=== PATIENT | male | born 1985 | race Caucasian/White ===

== ENCOUNTER 2018-08-23 06:01 | Emergency (ER) | payer OTHER ==
[2018-08-23] MEDS ORDERED: SODIUM CHLORIDE 0.9% 1,000 ML IV STA (06:28)
[2018-08-23] MEDS ORDERED: ACETAMINOPHEN TAB 325 MG TAB PO STA (06:28)
--- NOTE | 2018-08-23 06:28 | ED ---
Chest Pain HPI - General Chief Complaint: Chest Pain Stated Complaint: Chest Pain Time Seen by Provider: 08/23/18 06:20 Source: patient, family Mode of arrival: ambulatory Limitations: no limitations - History of Present Illness Initial Comments: Patient's 33-year-old man who presents with complaint of pain to the upper left chest. He states that it began approximately 2 days ago. He states that it is constant, sharp, aching pain. Patient noticed that it is worse if he takes a deep breath or coughs and also if he moves. He states he has also been having a bit of a cough occasionally with thick sputum and over the past 1-2 days has been having some fevers as well. He has been breaking into a sweat associated with the fevers. He denies anginal symptoms, no nausea or vomiting, dyspnea, palpitations, lightheadedness or syncope. MD Complaint: chest pain Onset/Timin -: days(s) Onset: during rest Pain Location: left chest Pain Radiation: none Severity: severe Quality: sharp Consistency: constant Improves With: nothing Worsens With: inspiration, movement Other Symptoms: cough, fever Treatments Prior to Arrival: none - Related Data Previous Rx's Medication Instructions Recorded Azithromycin [Zithromax Z-pack] 250 mg PO DIRECTED #6 tab 08/23/18 Allergies Allergy/AdvReac Type Severity Reaction Status Date / Time No Known Allergies Allergy Verified 08/23/18 07:14 Review of Systems ROS Statement: Those systems with pertinent positive or pertinent negative responses have been documented in the HPI. ROS Other: All systems not noted in ROS Statement are negative. Constitutional: Reports: fever, chills Respiratory: Reports: as per HPI, cough. Denies: dyspnea, wheezes, hemoptysis Cardiovascular: Reports: as per HPI, chest pain Gastrointestinal: Denies: abdominal pain, nausea, vomiting Genitourinary: Denies: dysuria, hematuria Musculoskeletal: Denies: back pain Skin: Denies: rash Neurological: Denies: headache, weakness EKG Findings - EKG Results: EKG: interpreted by MILTON, sinus rhythm, normal axis, normal QRS, normal ST/T, no acute changes EKG shows: tachycardia (Rate approximately 102 BPM) Past Medical History Past Medical History: No Reported History History of Any Multi-Drug Resistant Organisms: None Reported Past Surgical History: No Surgical Hx Reported Past Psychological History: Depression Smoking Status: Current every day smoker Past Alcohol Use History: None Reported Past Drug Use History: None Reported General Exam Limitations: no limitations General appearance: alert, in no apparent distress Head exam: Present: atraumatic, normocephalic Eye exam: Present: normal appearance. Absent: scleral icterus, conjunctival injection ENT exam: Present: normal oropharynx Neck exam: Present: normal inspection, full ROM Respiratory exam: Present: rales (Left), rhonchi. Absent: respiratory distress, stridor, chest wall tenderness, accessory muscle use, decreased breath sounds, prolonged expiratory Cardiovascular Exam: Present: normal rhythm, tachycardia, normal heart sounds. Absent: systolic murmur, diastolic murmur, rubs, gallop GI/Abdominal exam: Present: soft. Absent: distended, tenderness, guarding, rebound, rigid, mass Extremities exam: Present: normal inspection, normal capillary refill. Absent: pedal edema, calf tenderness Back exam: Present: normal inspection. Absent: CVA tenderness (R), CVA tenderness (L) Neurological exam: Present: alert Skin exam: Present: warm, intact, normal color, diaphoretic. Absent: rash Course Vital Signs 08/23/18 08/23/18 08/23/18 06:04 07:02 07:06 Temperature 100.6 F H 100.4 F H Pulse Rate 120 H 88 Respiratory 19 18 18 Rate Blood Pressure 137/92 146/87 O2 Sat by Pulse 97 Oximetry Disposition Clinical Impression: Pneumonia Disposition: HOME SELF-CARE Condition: Good Instructions (If sedation given, give patient instructions): Pneumonia (ED) Prescriptions: Azithromycin [Zithromax Z-pack] 250 mg PO DIRECTED #6 tab Is patient prescribed a controlled substance at d/c from ED?: No Referrals: None,Stated [Primary Care Provider] - 1-2 days Romeo Salcedo MD [REFERRING] - 1-2 days
[2018-08-23 06:42] LABS: Basophils % (A) 0 %; Eosinophils # (A) 0.1 k/uL (0-0.7); Eosinophils % (A) 1 %; HCT 44.6 % (39.0-53.0); HGB 15.4 gm/dL (13.0-17.5); Lymphocytes # (A) 2.5 k/uL (1.0-4.8); Lymphocytes % (A) 22 %; MCH 28.9 pg (25.0-35.0); MCHC 34.6 g/dL (31.0-37.0); MCV 83.7 fL (80.0-100.0); Monocytes # (A) 0.8 k/uL (0-1.0); Monocytes % (A) 7 %; Neutrophils # (A) 7.7 k/uL (1.3-7.7); Neutrophils % (A) 68 %; Platelet Count 254 k/uL (150-450); RBC 5.32 m/uL (4.30-5.90); RDW 13.9 % (11.5-15.5); WBC 11.4 k/uL (3.8-10.6)
[2018-08-23 06:54] LABS: ALT 26 U/L (21-72); AST 22 U/L (17-59); African American GFR (CKD) >90 (>60 ml/min/1.73 sqM); Albumin 4.3 g/dL (3.5-5.0); Alkaline Phosphatase 108 U/L (38-126); Anion Gap 16 mmol/L; Blood Urea Nitrogen 9 mg/dL (9-20); Calcium 9.4 mg/dL (8.4-10.2); Carbon Dioxide 19 mmol/L (22-30); Chloride 104 mmol/L (98-107); Glucose 109 mg/dL (74-99); Magnesium 1.7 mg/dL (1.6-2.3); Potassium 3.9 mmol/L (3.5-5.1); Sodium 139 mmol/L (137-145); Total Bilirubin 0.9 mg/dL (0.2-1.3); Total Protein 7.6 g/dL (6.3-8.2)
[2018-08-23 06:55] LABS: D-Dimer 0.33 mg/L FEU (<0.60); INR 0.9 (<1.2); Partial Thromboplastin Time 29.4 sec (22.0-30.0); Prothrombin Time 10.2 sec (9.0-12.0)
--- NOTE | 2018-08-23 06:56 | XR ---
EXAM: XR Chest, 2 Views CLINICAL HISTORY: Chest Pain TECHNIQUE: Frontal and lateral views of the chest. COMPARISON: No relevant prior studies available. FINDINGS: Limitations: Poor inspiratory effort limits evaluation. Lungs: Probable bibasilar atelectasis given the poor inspiratory effort. Infiltrates cannot be definitively excluded. Pleural space: Unremarkable. No pneumothorax. Heart: Unremarkable. No cardiomegaly. Mediastinum: Unremarkable. Bones/joints: Unremarkable. IMPRESSION: Probable bibasilar atelectasis given the poor inspiratory effort. Infiltrates cannot be definitively excluded.
[2018-08-23 07:05] VITALS: RESP 18
[2018-08-23] MEDS ORDERED: AZITHROMYCIN 500 MG TAB PO STA (07:15)
[2018-08-23] MEDS ORDERED: cefTRIAXone IN SWFI 1,000 MG/10 ML SYRINGE IVP STA ×2 (07:21→07:22)
[2018-08-23 08:11] VITALS: BP 132/82; PULSE 89; TEMP 98.4
== END 2018-08-23 08:25 | disposition home or self-care (01) ==
LOC: EC 06:01
DX: J18.9 Pneumonia, unspecified organism (principal); F17.200 Nicotine dependence, unspecified, uncomplicated; Z53.8 Procedure and treatment not carried out for other reasons
CPT/HCPCS: 36415; 71046; 80053; 83735; 84484; 85025; 85379; 85610; 85730; 87040; 93005; 96361; 96365; 99285

== ENCOUNTER 2018-08-24 00:51 | Inpatient (IN) | payer OTHER ==
[2018-08-24] MEDS ORDERED: VANCOMYCIN IV PER PHARMACY 1 EACH MISC MISCELLANE PRN (01:03)
[2018-08-24] MEDS ORDERED: VANCOMYCIN 1,500 MG in SODIUM CHLORIDE 0.9% 250 ML IVPB STA (01:11)
[2018-08-24] MEDS: SODIUM CHLORIDE 0.9% 500 ML 500 ML IV SCH ×3 (01:38→03:33)
[2018-08-24 01:39] LABS: Basophils # (A) 0.1 k/uL (0-0.2); Basophils % (A) 0 %; Eosinophils # (A) 0.2 k/uL (0-0.7); Eosinophils % (A) 2 %; HCT 43.9 % (39.0-53.0); HGB 14.7 gm/dL (13.0-17.5); Lymphocytes # (A) 2.6 k/uL (1.0-4.8); Lymphocytes % (A) 21 %; MCH 28.3 pg (25.0-35.0); MCHC 33.4 g/dL (31.0-37.0); MCV 84.7 fL (80.0-100.0); Mean Platelet Volume 7.1; Monocytes # (A) 0.6 k/uL (0-1.0); Monocytes % (A) 5 %; Neutrophils # (A) 8.4 k/uL (1.3-7.7); Neutrophils % (A) 69 %; Platelet Count 254 k/uL (150-450); RBC 5.19 m/uL (4.30-5.90); RDW 14.8 % (11.5-15.5); WBC 12.1 k/uL (3.8-10.6)
[2018-08-24] MEDS: PIPERACILLIN-TAZOBACTAM 3.375 GM in SODIUM CHLORIDE 0.9% 100 ML IVPB SCH ×2 (01:41→09:45)
[2018-08-24 01:49] LABS: ALT 28 U/L (21-72); AST 38 U/L (17-59); African American GFR (CKD) >90 (>60 ml/min/1.73 sqM); Albumin 4.3 g/dL (3.5-5.0); Alkaline Phosphatase 95 U/L (38-126); Anion Gap 9 mmol/L; Blood Urea Nitrogen 12 mg/dL (9-20); Calcium 9.3 mg/dL (8.4-10.2); Carbon Dioxide 29 mmol/L (22-30); Chloride 105 mmol/L (98-107); Glucose 108 mg/dL (74-99); Sodium 143 mmol/L (137-145); Total Bilirubin 0.5 mg/dL (0.2-1.3); Total Protein 7.5 g/dL (6.3-8.2)
[2018-08-24 01:51] LABS: INR 0.9 (<1.2); Partial Thromboplastin Time 28.3 sec (22.0-30.0); Prothrombin Time 10.1 sec (9.0-12.0)
--- NOTE | 2018-08-24 02:10 | XR ---
EXAM: XR Chest, 2 Views CLINICAL HISTORY: ITS.REASON XR Reason: Fever TECHNIQUE: Frontal and lateral views of the chest. COMPARISON: Chest radiograph 08/23/2018 FINDINGS: Lungs: No focal pulmonary infiltrates or consolidations. Pleural space: No evidence of pleural effusion or pneumothorax. Heart: Heart size is within normal limits. Mediastinum: Mediastinal structures are unremarkable. Bones/joints: Imaged bony thorax is unremarkable. IMPRESSION: No evidence of acute cardiopulmonary disease.
[2018-08-24] MEDS ORDERED: NALOXONE 0.4 MG/ML 1 ML VIAL IV PRN (03:44)
--- NOTE | 2018-08-24 03:44 | ED ---
General Adult HPI - General Chief complaint: Recheck/Abnormal Lab/Rx Stated complaint: Abn labs Time Seen by Provider: 08/24/18 01:03 Source: patient, RN notes reviewed, old records reviewed Mode of arrival: ambulatory Limitations: no limitations - History of Present Illness Initial comments: 33-year-old male patient past history of IV drug use presents to ED after being called back due to abnormal blood tests. Patient was seen in this emergency department yesterday for chest pain. At the time it was determined that the chest pain is likely caused by a pneumonia. Patient had blood cultures drawn at that visit. Patient's blood cultures did grow gram-positive cocci in clusters. Patient's symptoms he has been expressing for the last 3 days included some mild left parasternal chest pain, nonproductive cough, subjective fevers and chills. Patient reports that he has some very mild left parasternal discomfort waxing and waning throughout the day today. Patient reports his symptoms are much improved from yesterday. Patient denies any shortness of breath today. Patient denies any current chest pain. Denies any nausea vomiting diarrhea or abdominal pain. Systemic: Pt denies fatigue, fever/chills, rash. Pt denies weakness, night sweats, weight loss. Neuro: Pt denies headache, visual disturbances, syncope or pre-syncope. HEENT: Pt denies ocular discharge or irritation, otalgia, rhinorrhea, pharyngitis or notable lymphadenopathy. Cardiopulmonary: Pt denies chest pain, SOB, heart palpitations, dyspnea on exertion. Abdominal/GI: Pt denies abdominal pain, n/v/d. : Pt denies dysuria, burning w/ urination, frequency/urgency. Denies new onset urinary or bowel incontinence. MSK: Pt denies myalgia, loss of strength or function in extremities. Neuro: Pt denies new onset weakness, paresthesias. - Related Data Previous Rx's Medication Instructions Recorded Azithromycin [Zithromax Z-pack] 250 mg PO DIRECTED #6 tab 08/23/18 Allergies Allergy/AdvReac Type Severity Reaction Status Date / Time No Known Allergies Allergy Verified 08/23/18 07:14 Review of Systems ROS Statement: Those systems with pertinent positive or pertinent negative responses have been documented in the HPI. ROS Other: All systems not noted in ROS Statement are negative. Past Medical History Past Medical History: No Reported History History of Any Multi-Drug Resistant Organisms: None Reported Past Surgical History: No Surgical Hx Reported Past Psychological History: Depression Smoking Status: Current every day smoker Past Alcohol Use History: None Reported Past Drug Use History: None Reported General Exam - General Exam Comments Initial Comments: Constitutional: NAD, AOX3, Pt has pleasant affect. HEENT: NC/AT, trachea midline, neck supple, no lymphadenopathy. Posterior pharynx non erythematous, without exudates. External ears appear normal, without discharge. Mucous membranes moist. Eyes PERRLA, EOM intact. There is no scleral icterus. No pallor noted. Cardiopulmonary: RRR, no murmurs, rubs or gallops, no JVD noted. Lungs CTAB in anterior and posterior shah. No peripheral edema. Abdominal exam: Abdomen soft and non-distended. Abdomen non-tender to palpation in all 4 quadrants. Bowel sounds active in LLQ. No hepatosplenomegaly. No ecchymosis Neuro: CN II-XII grossly intact. No nuchal rigidity. No raccon eyes, no rubin sign, no hemotympanum. No cervical spinal tenderness. MSK: No posterior calf tenderness bilaterally, homans sign negative bilaterally. Posterior tibialis and radial pulse +2 bilaterally. Sensation intact in upper and lower extremities. Full active ROM in upper and lower extremities, 5/5 stregnth. No splinter hemorrhage, Janeway lesions, Osler nodes or rash noted Limitations: no limitations Course Vital Signs 08/24/18 08/24/18 00:59 03:38 Temperature 98.2 F Pulse Rate 85 91 Respiratory 16 14 Rate Blood Pressure 144/92 139/84 O2 Sat by Pulse 98 98 Oximetry Medical Decision Making - Medical Decision Making 33-year-old male patient past history of IV drug use presents to ED after being called back due to abnormal blood tests. Patient was seen in this emergency department yesterday for chest pain. At the time it was determined that the chest pain is likely caused by a pneumonia. Patient had blood cultures drawn at that visit. Patient's blood cultures did grow gram-positive cocci in clusters. Patient's symptoms he has been expressing for the last 3 days included some mild left parasternal chest pain, nonproductive cough, subjective fevers and chills. Patient reports that he has some very mild left parasternal discomfort waxing and waning throughout the day today. Patient reports his symptoms are much improved from yesterday. Patient denies any shortness of breath today. Patient denies any current chest pain. Denies any nausea vomiting diarrhea or abdominal pain. Pt VSS, afebrile. Physical exam did not display acute pathology. Laboratory investigations revealed mild leukocytosis of 12.1, otherwise nonspecific. Chest x-ray did not display acute process. EKG not concerning for acute ischemia. Patient began on vancomycin, Zosyn. Patient be admitted to hospital with infectious disease consult. Case discussed with Dr. Ruffin. - Lab Data Result diagrams: 08/24/18 01:30 08/24/18 01:30 Lab Results 08/24/18 08/24/18 08/24/18 Range/Units 01:30 01:30 01:30 WBC 12.1 H (3.8-10.6) k/uL RBC 5.19 (4.30-5.90) m/uL Hgb 14.7 (13.0-17.5) gm/dL Hct 43.9 (39.0-53.0) % MCV 84.7 (80.0-100.0) fL MCH 28.3 (25.0-35.0) pg MCHC 33.4 (31.0-37.0) g/dL RDW 14.8 (11.5-15.5) % Plt Count 254 (150-450) k/uL Neutrophils % 69 % Lymphocytes % 21 % Monocytes % 5 % Eosinophils % 2 % Basophils % 0 % Neutrophils # 8.4 H (1.3-7.7) k/uL Lymphocytes # 2.6 (1.0-4.8) k/uL Monocytes # 0.6 (0-1.0) k/uL Eosinophils # 0.2 (0-0.7) k/uL Basophils # 0.1 (0-0.2) k/uL PT 10.1 (9.0-12.0) sec INR 0.9 (<1.2) APTT 28.3 (22.0-30.0) sec Sodium (137-145) mmol/L Potassium (3.5-5.1) mmol/L Chloride (98-107) mmol/L Carbon Dioxide (22-30) mmol/L Anion Gap mmol/L BUN (9-20) mg/dL Creatinine (0.66-1.25) mg/dL Est GFR (CKD-EPI)AfAm (>60 ml/min/1.73 sqM) Est GFR (CKD-EPI)NonAf (>60 ml/min/1.73 sqM) Glucose (74-99) mg/dL Plasma Lactic Acid Bello 1.3 (0.7-2.0) mmol/L Calcium (8.4-10.2) mg/dL Total Bilirubin (0.2-1.3) mg/dL AST (17-59) U/L ALT (21-72) U/L Alkaline Phosphatase (38-126) U/L Troponin I (0.000-0.034) ng/mL Total Protein (6.3-8.2) g/dL Albumin (3.5-5.0) g/dL Urine Color Urine Appearance (Clear) Urine pH (5.0-8.0) Ur Specific [place] (1.001-1.035) Urine Protein (Negative) Urine Glucose (UA) (Negative) Urine Ketones (Negative) Urine Blood (Negative) Urine Nitrite (Negative) Urine Bilirubin (Negative) Urine Urobilinogen (<2.0) mg/dL Ur Leukocyte Esterase (Negative) 08/24/18 08/24/18 08/24/18 Range/Units 01:30 01:30 03:37 WBC (3.8-10.6) k/uL RBC (4.30-5.90) m/uL Hgb (13.0-17.5) gm/dL Hct (39.0-53.0) % MCV (80.0-100.0) fL MCH (25.0-35.0) pg MCHC (31.0-37.0) g/dL RDW (11.5-15.5) % Plt Count (150-450) k/uL Neutrophils % % Lymphocytes % % Monocytes % % Eosinophils % % Basophils % % Neutrophils # (1.3-7.7) k/uL Lymphocytes # (1.0-4.8) k/uL Monocytes # (0-1.0) k/uL Eosinophils # (0-0.7) k/uL Basophils # (0-0.2) k/uL PT (9.0-12.0) sec INR (<1.2) APTT (22.0-30.0) sec Sodium 143 (137-145) mmol/L Potassium 4.0 (3.5-5.1) mmol/L Chloride 105 (98-107) mmol/L Carbon Dioxide 29 (22-30) mmol/L Anion Gap 9 mmol/L BUN 12 (9-20) mg/dL Creatinine 0.94 (0.66-1.25) mg/dL Est GFR (CKD-EPI)AfAm >90 (>60 ml/min/1.73 sqM) Est GFR (CKD-EPI)NonAf >90 (>60 ml/min/1.73 sqM) Glucose 108 H (74-99) mg/dL Plasma Lactic Acid Bello (0.7-2.0) mmol/L Calcium 9.3 (8.4-10.2) mg/dL Total Bilirubin 0.5 (0.2-1.3) mg/dL AST 38 (17-59) U/L ALT 28 (21-72) U/L Alkaline Phosphatase 95 (38-126) U/L Troponin I <0.012 (0.000-0.034) ng/mL Total Protein 7.5 (6.3-8.2) g/dL Albumin 4.3 (3.5-5.0) g/dL Urine Color Yellow Urine Appearance Clear (Clear) Urine pH 6.5 (5.0-8.0) Ur Specific [place] 1.015 (1.001-1.035) Urine Protein Negative (Negative) Urine Glucose (UA) Negative (Negative) Urine Ketones Negative (Negative) Urine Blood Negative (Negative) Urine Nitrite Negative (Negative) Urine Bilirubin Negative (Negative) Urine Urobilinogen <2.0 (<2.0) mg/dL Ur Leukocyte Esterase Negative (Negative) - EKG Data -: EKG Interpreted by Me (and Dr. Ruffin) EKG Comments: Ventricular rate 97, painful 140, QRS 82, QT/QTC 322/48. Normal sinus rhythm, normal EKG, no concern for acute ischemia. Disposition Clinical Impression: Positive blood culture Disposition: ADMITTED IP TO THIS HOSP Condition: Serious Is patient prescribed a controlled substance at d/c from ED?: No
[2018-08-24 03:46] LABS: Appearance,Urine Clear (Clear); Bilirubin,Urine Negative (Negative); Blood,Urine Negative (Negative); Color,Urine Yellow; Glucose,Urine (UA) Negative (Negative); Ketones,Urine Negative (Negative); Leukocyte Esterase,Urine Negative (Negative); Nitrite,Urine Negative (Negative); PH, Urine 6.5 (5.0-8.0); Protein,Urine Negative (Negative); Specific Gravity,Urine 1.015 (1.001-1.035); Urobilinogen,Urine <2.0 mg/dL (<2.0)
[2018-08-24] MEDS: SODIUM CHLORIDE 0.9% 1,000 ML IV SCH ×2 (04:35→16:12)
[2018-08-24] MEDS ORDERED: KETOROLAC 30 MG/ML 1 ML VIAL IVP STA (05:08)
[2018-08-24] MEDS: VANCOMYCIN 1,500 MG in SODIUM CHLORIDE 0.9% 250 ML IVPB SCH ×2 (12:18→19:48)
--- NOTE | 2018-08-24 12:42 | P.CONS ---
History of Present Illness - Reason for Consult Consult date: 08/24/18 Positive blood culture, IV drug use, pneumonia - History of Present Illness This is a 33-year-old male gives history of treatment for pneumonia in the emergency center on August 23. At that time blood culture was obtained which has subsequently come back with gram-positive cocci and patient was contacted and instructed to come back in 2 Emergency Ctr. Repeat blood cultures have been obtained. Initial blood culture is showing gram-positive cocci in clusters. Echocardiogram has been ordered. Patient is currently on Zosyn and vancomycin. Patient was previously discharged home on Z-Von from the emergency center for pneumonia. Patient denies having any fever or chills. His cough is improved and shortness of breath is improved. Patient has been afebrile, white count is 12.1, creatinine 0.94, urinalysis negative. Patient does give history of IV use of oxycodone about 2 weeks ago but had previously quit 1 year ago. Noted the patient does not have any insurance coverage for IV antibiotics. Review of Systems All systems: negative Constitutional: Denies chills, Denies fatigue, Denies fever, Denies poor appetite, Denies weakness Eyes: denies blurred vision, denies pain Ears, nose, mouth and throat: Denies dysphagia, Denies headache, Denies nasal congestion, Denies nasal discharge, Denies sore throat Cardiovascular: Denies chest pain, Denies decreased exercise tolerance, Denies dyspnea on exertion, Denies edema, Denies shortness of breath Respiratory: Reports cough, Denies dyspnea, Denies excessive sputum, Denies hemoptysis, Denies home oxygen, Denies wheezing Gastrointestinal: Denies abdominal pain, Denies diarrhea, Denies nausea, Denies vomiting Genitourinary: Denies dysuria, Denies urinary frequency, Denies urinary hesitancy Musculoskeletal: Denies myalgias Integumentary: Denies pruritus, Denies rash, Denies wounds Neurological: Denies aphasia, Denies change in mentation, Denies change in sp eech, Denies numbness, Denies seizures, Denies weakness Psychiatric: Denies anxiety, Denies depression Endocrine: Denies fatigue, Denies weight change Past Medical History Past Medical History: No Reported History History of Any Multi-Drug Resistant Organisms: None Reported Past Surgical History: No Surgical Hx Reported Additional Past Anesthesia/Blood Transfusion Reaction / Comm: never had either. Past Psychological History: Depression Smoking Status: Current every day smoker Past Alcohol Use History: None Reported Additional Past Alcohol Use History / Comment(s): Patient is a smoker one pack per day for 12 years. He denies any alcohol use. Patient has used OxyContin IV and oral most recently 2 weeks ago. Past Drug Use History: None Reported, IV Drug Use, Opiates Additional Drug Use History / Comment(s): last used 2 weeks ago. Medications and Allergies Home Medications Medication Instructions Recorded Confirmed Type Linezolid 600 mg PO BID #42 tablet 08/24/18 Rx Allergies Allergy/AdvReac Type Severity Reaction Status Date / Time No Known Allergies Allergy Verified 08/24/18 07:16 Physical Exam Vitals: Vital Signs Temp Pulse Pulse Resp BP BP Pulse Ox 08/24/18 05:37 99.1 F 91 18 126/77 98 08/24/18 03:38 91 14 139/84 98 08/24/18 00:59 98.2 F 85 16 144/92 98 Intake and Output 08/23/18 08/24/18 08/24/18 22:59 06:59 14:59 Intake Total 1950 Balance 1950 Intake: Amount of Fluid Infused ( 1850 ml) Intake, IV Titration 100 Amount Sodium Chloride 0.9% 1, 100 000 ml @ 100 mls/hr IV . Q10H [facility] Rx#:[id number] Other: Weight 79.832 kg Gen: This is a 33-year-old male. He is resting in bed appears to be comfortable and in no acute distress. HEENT: Head is atraumatic, normocephalic. Pupils equal, round. Sclerae is anicteric. Oral mucous members are moist. NECK: Supple. No JVD. No lymphadenopathy. No thyromegaly. LUNGS: Clear to auscultation. No wheezes or rhonchi. No intercostal retractions. HEART: Regular rate and rhythm. No murmur. ABDOMEN: Soft. Bowel sounds are present. No masses. No tenderness. EXTREMITIES: No pedal edema. No calf tenderness. NEUROLOGICAL: Patient is awake, alert and oriented x3. Cranial nerves 2 through 12 are grossly intact. Results Results: Laboratory Results WBC 12.1 k/uL (3.8-10.6) H 08/24/18 01:30 RBC 5.19 m/uL (4.30-5.90) 08/24/18 01:30 Hgb 14.7 gm/dL (13.0-17.5) 08/24/18 01:30 Hct 43.9 % (39.0-53.0) 08/24/18 01:30 MCV 84.7 fL (80.0-100.0) 08/24/18 01:30 MCH 28.3 pg (25.0-35.0) 08/24/18 01:30 MCHC 33.4 g/dL (31.0-37.0) 08/24/18 01:30 RDW 14.8 % (11.5-15.5) 08/24/18 01:30 Plt Count 254 k/uL (150-450) 08/24/18 01:30 Neutrophils % 69 % 08/24/18 01:30 Lymphocytes % 21 % 08/24/18 01:30 Monocytes % 5 % 08/24/18 01:30 Eosinophils % 2 % 08/24/18 01:30 Basophils % 0 % 08/24/18 01:30 Neutrophils # 8.4 k/uL (1.3-7.7) H 08/24/18 01:30 Lymphocytes # 2.6 k/uL (1.0-4.8) 08/24/18 01:30 Monocytes # 0.6 k/uL (0-1.0) 08/24/18 01:30 Eosinophils # 0.2 k/uL (0-0.7) 08/24/18 01:30 Basophils # 0.1 k/uL (0-0.2) 08/24/18 01:30 PT 10.1 sec (9.0-12.0) 08/24/18 01:30 INR 0.9 (<1.2) 08/24/18 01:30 APTT 28.3 sec (22.0-30.0) 08/24/18 01:30 Sodium 143 mmol/L (137-145) 08/24/18 01:30 Potassium 4.0 mmol/L (3.5-5.1) 08/24/18 01:30 Chloride 105 mmol/L (98-107) 08/24/18 01:30 Carbon Dioxide 29 mmol/L (22-30) 08/24/18 01:30 Anion Gap 9 mmol/L 08/24/18 01:30 BUN 12 mg/dL (9-20) 08/24/18 01:30 Creatinine 0.94 mg/dL (0.66-1.25) 08/24/18 01:30 Est GFR (CKD-EPI)AfAm >90 (>60 ml/min/1.73 sqM) 08/24/18 01:30 Est GFR (CKD-EPI)NonAf >90 (>60 ml/min/1.73 sqM) 08/24/18 01:30 Glucose 108 mg/dL (74-99) H 08/24/18 01:30 Plasma Lactic Acid Bello 1.3 mmol/L (0.7-2.0) 08/24/18 01:30 Calcium 9.3 mg/dL (8.4-10.2) 08/24/18 01:30 Total Bilirubin 0.5 mg/dL (0.2-1.3) 08/24/18 01:30 AST 38 U/L (17-59) 08/24/18 01:30 ALT 28 U/L (21-72) 08/24/18 01:30 Alkaline Phosphatase 95 U/L (38-126) 08/24/18 01:30 Troponin I <0.012 ng/mL (0.000-0.034) 08/24/18 01:30 Total Protein 7.5 g/dL (6.3-8.2) 08/24/18 01:30 Albumin 4.3 g/dL (3.5-5.0) 08/24/18 01:30 Urine Color Yellow 08/24/18 03:37 Urine Appearance Clear (Clear) 08/24/18 03:37 Urine pH 6.5 (5.0-8.0) 08/24/18 03:37 Ur Specific [place] 1.015 (1.001-1.035) 08/24/18 03:37 Urine Protein Negative (Negative) 08/24/18 03:37 Urine Glucose (UA) Negative (Negative) 08/24/18 03:37 Urine Ketones Negative (Negative) 08/24/18 03:37 Urine Blood Negative (Negative) 08/24/18 03:37 Urine Nitrite Negative (Negative) 08/24/18 03:37 Urine Bilirubin Negative (Negative) 08/24/18 03:37 Urine Urobilinogen <2.0 mg/dL (<2.0) 08/24/18 03:37 Ur Leukocyte Esterase Negative (Negative) 08/24/18 03:37 CBC & Chem 7: 08/25/18 09:43 08/25/18 09:43 Labs: Abnormal Lab Results - Last 24 Hours (Table) 08/24/18 08/24/18 Range/Units 01:30 01:30 WBC 12.1 H (3.8-10.6) k/uL Neutrophils # 8.4 H (1.3-7.7) k/uL Glucose 108 H (74-99) mg/dL Assessment and Plan Assessment: Cardiopulmonary process. Patient had blood culture obtained which came back positive for gram-positive cocci in clusters. Patient was asked return to the hospital and has been admitted. Patient is currently on Zosyn and vancomycin. Repeat blood culture has been obtained. Echocardiogram ordered. Patient does have history of IV drug use within 2 weeks. Continue supportive care. Further limitations patient versus. The above dictated assessment and findings were discussed with Dr. Qureshi. The impression and plan of care have been directed as dictated. Gwendolyn Child nurse practitioner acting as scribe for Dr. Qureshi.
--- NOTE | 2018-08-24 12:51 | ECHOF ---
Referral Reason:R/O endocarditis MEASUREMENTS -------- HEIGHT: 170.2 cm WEIGHT: 79.8 kg BP: 126/77 RVIDd: 3.4 cm (< 3.3) IVSd: 1.1 cm (0.6 - 1.1) LVIDd: 4.9 cm (3.9 - 5.3) LVPWd: 1.2 cm (0.6 - 1.1) IVSs: 1.4 cm LVIDs: 3.1 cm LVPWs: 1.9 cm LAESV Index (A-L): 31.01 ml/m Ao Diam: 3.3 cm (2.0 - 3.7) AV Cusp: 2.1 cm (1.5 - 2.6) LA Diam: 3.3 cm (2.7 - 3.8) EPSS: 0.6 cm MV E Rudy: 1.11 m/s MV DecT: 224 ms MV A Rudy: 1.00 m/s MV E/A Ratio: 1.10 RAP: 5.00 mmHg RVSP: 29.89 mmHg MV EF SLOPE: 166.65 mm/s (70 - 150) MV EXCURSION: 1.64 cm (> 18.000) FINDINGS -------- Sinus rhythm. This was a technically adequate study. The left ventricular size is normal. There is borderline concentric left ventricular hypertrophy. Overall left ventricular systolic function is normal with, an EF between 55 - 60 %. The diastolic filling pattern is normal for the age of the patient. The right ventricle is mildly enlarged. Left atrium is mildly dilated by volume. The right atrial size is normal. Interatrial and interventricular septum intact. The aortic valve is trileaflet and appears structurally normal. There is no evidence of aortic regu rgitation. There is no evidence of aortic stenosis. There is trace mitral regurgitation. Mild tricuspid regurgitation present. There is no evidence of pulmonary hypertension. The right v entricular systolic pressure, as measured by Doppler, is 29.89mmHg. There is no pulmonic regurgitation present. The aortic root size is normal. The inferior vena cava was not well visualized. There is a trivial pericardial effusion present. CONCLUSIONS -------- 1. Sinus rhythm. 2. This was a technically adequate study. 3. The left ventricular size is normal. 4. There is borderline concentric left ventricular hypertrophy. 5. Overall left ventricular systolic function is normal with, an EF between 55 - 60 %. 6. The diastolic filling pattern is normal for the age of the patient. 7. The right ventricle is mildly enlarged. 8. Left atrium is mildly dilated by volume. 9. The right atrial size is normal. 10. Interatrial and interventricular septum intact. 11. The aortic valve is trileaflet and appears structurally normal. 12. There is no evidence of aortic regurgitation. 13. There is no evidence of aortic stenosis. 14. There is trace mitral regurgitation. 15. Mild tricuspid regurgitation present. 16. There is no evidence of pulmonary hypertension. 17. The right ventricular systolic pressure, as measured by Doppler, is 29.89mmHg. 18. There is no pulmonic regurgitation present. 19. The aortic root size is normal. 20. The inferior vena cava was not well visualized. 21. There is a trivial pericardial effusion present. [facility] CORONER: Raaenn Atkinson RDCS
--- NOTE | 2018-08-24 14:19 | P.HPIM ---
History of Present Illness 71-year-old pleasant male came was asked by ER to come back because of his blood cultures being positive for gram-positive cocci. Patient came in with fever of 102 with cough with minimal sputum production chest x-ray did not show any pneumonic process but patient was diagnosed with pneumonia and bronchitis was discharged home on 9 azithromycin. Patient's fevers resolved. Blood repeat blood cultures were obtained. Patient was started on Vanco and Zosyn may not need Zosyn will continue with vancomycin infectious disease is a Dr. 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 Patient is sexually active with one female partner for long time which is his . Echocardiogram was obtained which did not show any valvular abnormalities. Blood cultures are now showing staph aureus. Hepatitis panel and HIV testings are being obtained. Patient is bit tachycardic no shortness of breath no more fever at this time Review of Systems REVIEW OF SYSTEMS: CONSTITUTIONAL: No fever, no malaise, no fatigue. HEENT: No recent visual problems or hearing problems. Denied any sore throat. CARDIOVASCULAR: No chest pain, orthopnea, PND, no palpitations, no syncope. PULMONARY: No shortness of breath, no cough, no hemoptysis. GASTROINTESTINAL: No diarrhea, no nausea, no vomiting, no abdominal pain. NEUROLOGICAL: No headaches, no weakness, no numbness. HEMATOLOGICAL: Denies any bleeding or petechiae. GENITOURINARY: Denies any burning micturition, frequency, or urgency. MUSCULOSKELETAL/RHEUMATOLOGICAL: Denies any joint pain, swelling, or any muscle pain. ENDOCRINE: Denies any polyuria or polydipsia. The rest of the 14-point review of systems is negative. Past Medical History Past Medical History: No Reported History History of Any Multi-Drug Resistant Organisms: None Reported Past Surgical History: No Surgical Hx Reported Additional Past Anesthesia/Blood Transfusion Reaction / Comment(s): never had either. Past Psychological History: Depression Smoking Status: Current every day smoker Past Alcohol Use History: None Reported Additional Past Alcohol Use History / Comment(s): Patient is a smoker one pack per day for 12 years. He denies any alcohol use. Patient has used OxyContin IV and oral most recently 2 weeks ago. Past Drug Use History: None Reported, IV Drug Use, Opiates Additional Drug Use History / Comment(s): last used 2 weeks ago. Medications and Allergies Home Medications Medication Instructions Recorded Confirmed Type Azithromycin [Zithromax Z-pack] See Taper PO DAILY 08/24/18 08/24/18 History Linezolid 600 mg PO BID #42 tablet 08/24/18 Rx Allergies Allergy/AdvReac Type Severity Reaction Status Date / Time No Known Allergies Allergy Verified 08/24/18 07:16 Physical Exam Vitals: Vital Signs Temp Pulse Pulse Resp BP BP Pulse Ox 08/24/18 11:35 97.5 F L 85 17 134/74 98 08/24/18 05:37 99.1 F 91 18 126/77 98 08/24/18 03:38 91 14 139/84 98 08/24/18 00:59 98.2 F 85 16 144/92 98 Intake and Output 08/23/18 08/24/18 08/24/18 22:59 06:59 14:59 Intake Total 1950 Balance 1950 Intake: Amount of Fluid Infused ( 1850 ml) Intake, IV Titration 100 Amount Sodium Chloride 0.9% 1, 100 000 ml @ 100 mls/hr IV . Q10H COUNTS INCLUDE 234 BEDS AT THE [facility] Rx#:[id number] Other: Voiding Method Toilet Weight 79.832 kg PHYSICAL EXAMINATION: GENERAL: The patient is alert and oriented x3, not in any acute distress. Well developed, well nourished. HEENT: Pupils are round and equally reacting to light. EOMI. No scleral icterus. No conjunctival pallor. Normocephalic, atraumatic. No pharyngeal erythema. No thyromegaly. CARDIOVASCULAR: S1 and S2 present. No murmurs, rubs, or gallops. Patient is tachycardic PULMONARY: Chest is clear to auscultation, no wheezing or crackles. ABDOMEN: Soft, nontender, nondistended, normoactive bowel sounds. No palpable organomegaly. MUSCULOSKELETAL: No joint swelling or deformity. EXTREMITIES: No cyanosis, clubbing, or pedal edema. NEUROLOGICAL: Gross neurological examination did not reveal any focal deficits. SKIN: No rashes. Results CBC & Chem 7: 08/24/18 01:30 08/24/18 01:30 Labs: Abnormal Lab Results - Last 24 Hours (Table) 08/24/18 08/24/18 Range/Units 01:30 01:30 WBC 12.1 H (3.8-10.6) k/uL Neutrophils # 8.4 H (1.3-7.7) k/uL Glucose 108 H (74-99) mg/dL Microbiology - Last 24 Hours (Table) 08/24/18 03:37 Urine Culture - Preliminary Urine,Clean Catch Thrombosis Risk Factor Assmnt - Choose All That Apply Any of the Below Risk Factors Present?: No Assessment and Plan Plan: -Bacteremia with staph aureus: Repeat cultures will be obtained today and tomorrow patient is on vancomycin which will be continued Zosyn will discontinued Echocardiogram did not show any valvular vegetations -History of prior drug use we're obtaining hepatitis panel. -Leukocytosis: Secondary to sepsis as mentioned above and bacteremia -Tachycardia continue with IV fluids DVT prophylaxis: Early ambulation
[2018-08-24] MEDS ORDERED: VANCOMYCIN 1,500 MG in SODIUM CHLORIDE 0.9% 250 ML IVPB SCH (15:00)
[2018-08-24] MEDS: IBUPROFEN 400 MG TAB PO PRN (16:26)
[2018-08-24] MEDS: NICOTINE 21MG/24HR PATCH TRANSDERM SCH (17:55)
[2018-08-24 19:37] LABS: Hepatitis A Antibody IgM Non-Reactive (Non-Reactive); Hepatitis B Core IgM Non-Reactive (Non-Reactive)
[2018-08-24 21:59] LABS: HIV 1 AB Non-Reactive (Non-Reactive); HIV AB P24 Non-Reactive (Non-Reactive); HIV P24 AG Non-Reactive (Non-Reactive)
--- NOTE | 2018-08-24 22:50 | P.CON ---
Consult Note - . Consult date: 08/24/18 Assessment/Plan:: This is a 33-year-old male gives history of treatment for pneumonia in the emergency center on August 23. At that time blood culture was obtained which has subsequently come back with gram-positive cocci and patient was contacted and instructed to come back in 2 Emergency Ctr. Repeat blood cultures have been obtained. Initial blood culture is showing gram-positive cocci in clusters. Echocardiogram has been ordered. Patient is currently on Zosyn and vancomycin. Patient was previously discharged home on Z-Von from the emergency center for pneumonia. Patient denies having any fever or chills. His cough is improved and shortness of breath is improved. Patient has been afebrile, white count is 12.1, creatinine 0.94, urinalysis negative. Patient does give history of IV use of oxycodone about 2 weeks ago but had previously quit 1 year ago. Noted the patient does not have any insurance coverage for IV antibiotics.Please see the consult note as dictated by nurse practitioner Mrs. Gwendolyn Child. As related 33-year-old male who has a history of injection drug use with OxyContin relates he presented to the emergency center recently where he was having difficulties with breathing fever and chill. His concerns pneumonia and he was treated with azithromycin. Patient was callback to hospital with evidence of gram-positive cocci in clusters bacteremia. Given his history of current injection drug use there is concerns to endocarditis is the etiology of his current illness. As noted there is leukocytosis, he had significant fever and has had some malaise. On the exam the patient does have significant ta chycardia there is evidence of a flow murmur. Antibiotic therapy has been de- escalate vancomycin pending further culture data, staph aureus and MRSA are greatest concern with the current findings. Given the patient's active injection drug use and no notation of drug rehab will not be a candidate for long-term IV access placement which will make outpatient intravenous antibiotic therapy very difficult. We'll ask his insurance carrier if he can have Zyvox therapy to give us an oral option for the current condition. May need to make other plans depending on the final blood culture results. Working with case management information is directly related to the attending. I agree with evaluation, assessment and plan this dictated by nurse practitioner Mrs. Gwendolyn Child.
[2018-08-25] MEDS: SODIUM CHLORIDE 0.9% 1,000 ML IV SCH ×3 (01:59→20:31)
[2018-08-25] MEDS: VANCOMYCIN 1,500 MG in SODIUM CHLORIDE 0.9% 250 ML IVPB SCH ×2 (02:48→10:57)
[2018-08-25] MEDS: IBUPROFEN 400 MG TAB PO PRN ×2 (05:01→19:18)
[2018-08-25] MEDS: NICOTINE 21MG/24HR PATCH TRANSDERM SCH (08:25)
[2018-08-25] MEDS ORDERED: VANCOMYCIN TROUGH DUE 1 EACH MISC MISCELLANE ONE (10:00)
[2018-08-25 10:23] LABS: Basophils % (A) 0 %; Eosinophils # (A) 0.1 k/uL (0-0.7); Eosinophils % (A) 2 %; HCT 41.2 % (39.0-53.0); HGB 13.3 gm/dL (13.0-17.5); Lymphocytes % (A) 27 %; MCH 28.1 pg (25.0-35.0); MCHC 32.3 g/dL (31.0-37.0); Mean Platelet Volume 6.7; Monocytes # (A) 0.3 k/uL (0-1.0); Monocytes % (A) 4 %; Neutrophils # (A) 4.8 k/uL (1.3-7.7); Neutrophils % (A) 65 %; Platelet Count 293 k/uL (150-450); RBC 4.73 m/uL (4.30-5.90); RDW 12.7 % (11.5-15.5); WBC 7.3 k/uL (3.8-10.6)
[2018-08-25 10:27] LABS: ALT 26 U/L (21-72); AST 20 U/L (17-59); African American GFR (CKD) >90 (>60 ml/min/1.73 sqM); Albumin 3.7 g/dL (3.5-5.0); Alkaline Phosphatase 88 U/L (38-126); Anion Gap 9 mmol/L; Blood Urea Nitrogen 7 mg/dL (9-20); Calcium 9.4 mg/dL (8.4-10.2); Carbon Dioxide 22 mmol/L (22-30); Chloride 112 mmol/L (98-107); Glucose 104 mg/dL (74-99); Potassium 4.2 mmol/L (3.5-5.1); Sodium 143 mmol/L (137-145); Total Bilirubin 0.5 mg/dL (0.2-1.3); Total Protein 6.9 g/dL (6.3-8.2)
--- NOTE | 2018-08-25 14:01 | P.PN ---
Subjective 33-year-old male with history of IV drug use admitted for bacteremia, patient has MSSA, patient probably can be switched to nafcillin. The blood cultures are negative tomorrow, the repeat ones patient will be discharged tomorrow. Echocardiogram did not show any valvular involvement Constitutional: Denied any fatigue denied any fever. Cardio vascular: denied any chest pain, palpitations Gastrointestinal denied any nausea vomiting Pulmonary: Denied any shortness of breath cough Neurologic denied any new focal deficits All inpatient medications were reviewed and appropriate changes in these medications as dictated in the interval history and assessment and plan. Objective - Vital Signs Vital signs: Vital Signs Temp 98.3 F 08/25/18 12:09 Pulse 90 08/25/18 12:09 Resp 20 08/25/18 12:09 BP 131/82 08/25/18 12:09 Pulse Ox 97 08/25/18 12:09 Intake & Output 08/24/18 08/25/18 08/25/18 18:59 06:59 18:59 Intake Total 950 1300 Balance 950 1300 Intake: Intake, IV Titration 950 1300 Amount Piperacillin-Tazobactam 3 100 .375 gm In Sodium Chloride 0.9% 100 ml @ 25 mls/hr IVPB Q8H [facility] Rx#: [id number] Sodium Chloride 0.9% 1, 600 800 000 ml @ 100 mls/hr IV . Q10H [facility] Rx#:[id number] Vancomycin 1,500 mg In 250 500 Sodium Chloride 0.9% 250 ml @ 125 mls/hr IVPB Q12H [facility] Rx#:[id number] Other: Voiding Method Toilet Toilet # Voids 3 - Exam PHYSICAL EXAMINATION: GENERAL: The patient is alert and oriented x3, not in any acute distress. Well developed, well nourished. HEENT: Pupils are round and equally reacting to light. EOMI. No scleral icterus. No conjunctival pallor. Normocephalic, atraumatic. No pharyngeal erythema. No thyromegaly. CARDIOVASCULAR: S1 and S2 present. No murmurs, rubs, or gallops. PULMONARY: Chest is clear to auscultation, no wheezing or crackles. ABDOMEN: Soft, nontender, nondistended, normoactive bowel sounds. No palpable organomegaly. MUSCULOSKELETAL: No joint swelling or deformity. EXTREMITIES: No cyanosis, clubbing, or pedal edema. NEUROLOGICAL: Gross neurological examination did not reveal any focal deficits. SKIN: No rashes. - Labs CBC & Chem 7: 08/25/18 09:43 08/25/18 09:43 Labs: Abnormal Lab Results - Last 24 Hours (Table) 08/25/18 Range/Units 09:43 Chloride 112 H (98-107) mmol/L BUN 7 L (9-20) mg/dL Creatinine 0.60 L (0.66-1.25) mg/dL Glucose 104 H (74-99) mg/dL Microbiology - Last 24 Hours (Table) 08/24/18 03:37 Urine Culture - Final Urine,Clean Catch 08/24/18 07:52 Blood Culture - Preliminary Blood No Growth after 24 hours 08/24/18 01:30 Blood Culture - Preliminary Blood No Growth after 24 hours Assessment and Plan Plan: -Bacteremia with staph aureus: Repeat cultures did not show any bacteremia, patient has MSSA vancomycin probably can be switched to staphylococcal beta lactams on ceftezole and Echocardiogram did not show any valvular vegetations -History of prior drug use hepatitis panel and HIV were negative -Leukocytosis: Secondary to sepsis as mentioned above and bacteremia, improved -Tachycardia continue with IV fluids DVT prophylaxis: Early ambulation
--- NOTE | 2018-08-25 17:23 | P.PN ---
Subjective Progress Note Date: 08/25/18 This is a 33-year-old male gives history of treatment for pneumonia in the emergency center on August 23. At that time blood culture was obtained which has subsequently come back with gram-positive cocci and patient was contacted and instructed to come back in 2 Emergency Ctr. Repeat blood cultures have been obtained. Initial blood culture is showing gram-positive cocci in clusters. Echocardiogram has been ordered. Patient is currently on Zosyn and vancomycin. Patient was previously discharged home on Z-Von from the emergency center for pneumonia. Patient denies having any fever or chills. His cough is improved and shortness of breath is improved. Patient has been afebrile, white count is 12.1, creatinine 0.94, urinalysis negative. Patient does give history of IV use of oxycodone about 2 weeks ago but had previously quit 1 year ago. Noted the patient does not have any insurance coverage for IV antibiotics. 08/25/2018 there is improvement. Fevers improved. Blood cultures are negative today. Objective - Vital Signs Vital signs: Vital Signs Temp 98.3 F 08/25/18 12:09 Pulse 90 08/25/18 12:09 Resp 20 08/25/18 12:09 BP 131/82 08/25/18 12:09 Pulse Ox 97 08/25/18 12:09 Intake & Output 08/24/18 08/25/18 08/25/18 18:59 06:59 18:59 Intake Total 950 1300 750 Balance 950 1300 750 Intake: Intake, IV Titration 950 1300 750 Amount Piperacillin-Tazobactam 3 100 .375 gm In Sodium Chloride 0.9% 100 ml @ 25 mls/hr IVPB Q8H [facility] Rx#: [id number] Sodium Chloride 0.9% 1, 600 800 500 000 ml @ 100 mls/hr IV . Q10H [facility] Rx#:[id number] Vancomycin 1,500 mg In 250 500 Sodium Chloride 0.9% 250 ml @ 125 mls/hr IVPB Q12H [facility] Rx#:[id number] Vancomycin 1,500 mg In 250 Sodium Chloride 0.9% 250 ml @ 125 mls/hr IVPB Q8H [facility] Rx#:[id number] Other: Voiding Method Toilet Toilet Toilet # Voids 3 - Exam Gen: This is a 33-year-old male. He is resting in bed appears to be comfortable and in no acute distress. HEENT: Head is atraumatic, normocephalic. Pupils equal, round. Sclerae is anicteric. Oral mucous members are moist. NECK: Supple. No JVD. No lymphadenopathy. No thyromegaly. LUNGS: Clear to auscultation. No wheezes or rhonchi. No intercostal retractions. HEART: Regular rate and rhythm. No murmur. ABDOMEN: Soft. Bowel sounds are present. No masses. No tenderness. EXTREMITIES: No pedal edema. No calf tenderness. NEUROLOGICAL: Patient is awake, alert and oriented x3. - Labs CBC & Chem 7: 08/25/18 09:43 08/25/18 09:43 Labs: Abnormal Lab Results - Last 24 Hours (Table) 08/25/18 Range/Units 09:43 Chloride 112 H (98-107) mmol/L BUN 7 L (9-20) mg/dL Creatinine 0.60 L (0.66-1.25) mg/dL Glucose 104 H (74-99) mg/dL Microbiology - Last 24 Hours (Table) 08/24/18 03:37 Urine Culture - Final Urine,Clean Catch 08/24/18 07:52 Blood Culture - Preliminary Blood No Growth after 24 hours 08/24/18 01:30 Blood Culture - Preliminary Blood No Growth after 24 hours Laboratory Results WBC 7.3 k/uL (3.8-10.6) 08/25/18 09:43 RBC 4.73 m/uL (4.30-5.90) 08/25/18 09:43 Hgb 13.3 gm/dL (13.0-17.5) 08/25/18 09:43 Hct 41.2 % (39.0-53.0) 08/25/18 09:43 MCV 87.0 fL (80.0-100.0) 08/25/18 09:43 MCH 28.1 pg (25.0-35.0) 08/25/18 09:43 MCHC 32.3 g/dL (31.0-37.0) 08/25/18 09:43 RDW 12.7 % (11.5-15.5) 08/25/18 09:43 Plt Count 293 k/uL (150-450) 08/25/18 09:43 Neutrophils % 65 % 08/25/18 09:43 Lymphocytes % 27 % 08/25/18 09:43 Monocytes % 4 % 08/25/18 09:43 Eosinophils % 2 % 08/25/18 09:43 Basophils % 0 % 08/25/18 09:43 Neutrophils # 4.8 k/uL (1.3-7.7) 08/25/18 09:43 Lymphocytes # 2.0 k/uL (1.0-4.8) 08/25/18 09:43 Monocytes # 0.3 k/uL (0-1.0) 08/25/18 09:43 Eosinophils # 0.1 k/uL (0-0.7) 08/25/18 09:43 Basophils # 0.0 k/uL (0-0.2) 08/25/18 09:43 PT 10.1 sec (9.0-12.0) 08/24/18 01:30 INR 0.9 (<1.2) 08/24/18 01:30 APTT 28.3 sec (22.0-30.0) 08/24/18 01:30 Sodium 143 mmol/L (137-145) 08/25/18 09:43 Potassium 4.2 mmol/L (3.5-5.1) 08/25/18 09:43 Chloride 112 mmol/L (98-107) H 08/25/18 09:43 Carbon Dioxide 22 mmol/L (22-30) 08/25/18 09:43 Anion Gap 9 mmol/L 08/25/18 09:43 BUN 7 mg/dL (9-20) L 08/25/18 09:43 Creatinine 0.60 mg/dL (0.66-1.25) L 08/25/18 09:43 Est GFR (CKD-EPI)AfAm >90 (>60 ml/min/1.73 sqM) 08/25/18 09:43 Est GFR (CKD-EPI)NonAf >90 (>60 ml/min/1.73 sqM) 08/25/18 09:43 Glucose 104 mg/dL (74-99) H 08/25/18 09:43 Plasma Lactic Acid Bello 1.3 mmol/L (0.7-2.0) 08/24/18 01:30 Calcium 9.4 mg/dL (8.4-10.2) 08/25/18 09:43 Total Bilirubin 0.5 mg/dL (0.2-1.3) 08/25/18 09:43 AST 20 U/L (17-59) 08/25/18 09:43 ALT 26 U/L (21-72) 08/25/18 09:43 Alkaline Phosphatase 88 U/L (38-126) 08/25/18 09:43 Troponin I <0.012 ng/mL (0.000-0.034) 08/24/18 01:30 Total Protein 6.9 g/dL (6.3-8.2) 08/25/18 09:43 Albumin 3.7 g/dL (3.5-5.0) 08/25/18 09:43 Urine Color Yellow 08/24/18 03:37 Urine Appearance Clear (Clear) 08/24/18 03:37 Urine pH 6.5 (5.0-8.0) 08/24/18 03:37 Ur Specific Steedman 1.015 (1.001-1.035) 08/24/18 03:37 Urine Protein Negative (Negative) 08/24/18 03:37 Urine Glucose (UA) Negative (Negative) 08/24/18 03:37 Urine Ketones Negative (Negative) 08/24/18 03:37 Urine Blood Negative (Negative) 08/24/18 03:37 Urine Nitrite Negative (Negative) 08/24/18 03:37 Urine Bilirubin Negative (Negative) 08/24/18 03:37 Urine Urobilinogen <2.0 mg/dL (<2.0) 08/24/18 03:37 Ur Leukocyte Esterase Negative (Negative) 08/24/18 03:37 Vancomycin Trough 13.5 ug/mL 08/25/18 09:43 Hepatitis A IgM Ab Non-Reactive (Non-Reactive) 08/24/18 01:30 Hep Bs Antigen Non-Reactive (Non-Reactive) 08/24/18 01:30 Hep B Core IgM Ab Non-Reactive (Non-Reactive) 08/24/18 01:30 Hep C IgG Ab Non-Reactive (Non-Reactive) 08/24/18 01:30 HIV-1 Antibody Non-Reactive (Non-Reactive) 08/24/18 01:30 HIV Ag/Ab Interpret 08/24/18 01:30 HIV p24 Antibody Non-Reactive (Non-Reactive) 08/24/18 01:30 HIV-2 Antibody Non-Reactive (Non-Reactive) 08/24/18 01:30 HIV P24 Antigen Non-Reactive (Non-Reactive) 08/24/18 01:30 Microbiology 08/24/18 03:37 Urine,Clean Catch Urine Culture - Final 08/24/18 07:52 Blood Blood Culture - Preliminary No Growth after 24 hours 08/24/18 01:30 Blood Blood Culture - Preliminary No Growth after 24 hours Assessment and Plan (1) Staphylococcus aureus bacteremia Narrative/Plan: As related 33-year-old male who has a history of injection drug use with OxyContin relates he presented to the emergency center recently where he was having difficulties with breathing fever and chill. His concerns pneumonia and he was treated with azithromycin. Patient was callback to hospital with evidence of gram-positive cocci in clusters bacteremia. Given his history of current injection drug use there is concerns to endocarditis is the etiology of his current illness. As noted there is leukocytosis, he had significant fever and has had some malaise. On the exam the patient does have significant tachycardia there is evidence of a flow murmur. Antibiotic therapy has been de- escalate vancomycin pending further culture data, staph aureus and MRSA are greatest concern with the current findings. Given the patient's active injection drug use and no notation of drug rehab will not be a candidate for long-term IV access placement which will make outpatient intravenous antibiotic therapy very difficult. We'll ask his insurance carrier if he can have Zyvox therapy to give us an oral option for the current condition. May need to make other plans depending on the final blood culture results. Working with case management information is directly related to the attending. 08/25/2018 patient has some improvement. Blood culture is negative at 24 hours. He is tolerating current antibiotic therapy well. The ankle is transitioned to Ancef given the susceptibility pattern. If there are no other difficulties patient will be discharged tomorrow with blood cultures negative at 48 hours. He is very been approved for oral Zyvox therapy which is plan for at least 4 weeks in the outpatient setting. Follow-up in the office in 4 weeks. Current Visit: Yes Status: Acute Code(s): R78.81 - BACTEREMIA SNOMED Code(s): 893471059
[2018-08-26] MEDS: SODIUM CHLORIDE 0.9% 1,000 ML IV SCH (08:25)
[2018-08-26] MEDS: NICOTINE 21MG/24HR PATCH TRANSDERM SCH (08:25)
[2018-08-26 11:57] VITALS: BP 135/87; PULSE 74; RESP 17; TEMP 97.2
--- NOTE | 2018-08-26 14:51 | P.DS ---
Providers Date of admission: 08/24/18 04:28 Attending physician: Parris Jones Consults: 08/24/18 03:44 Consult Physician Stat Consulting Provider: Everton Qureshi Reason/Comments: positive blood culture, IVDU, pneumonia dx Do you want consulting provider notified?: Yes, Notify in am Primary care physician: Stated None Hospital Course: 33-year-old male with history of IV drug use admitted for bacteremia, patient has MSSA, patient probably can be switched to nafcillin. The blood cultures are negative tomorrow, the repeat ones patient will be discharged tomorrow. Echocardiogram did not show any valvular involvement 08/26/2018 Patient has MSSA but because of concerns of his IV drug use PICC line is not being placed and patient will be discharged on linezolid instead for which patient is approved. Patient will be discharged today patient doesn't have any persistent bacteremia. PHYSICAL EXAMINATION: GENERAL: The patient is alert and oriented x3, not in any acute distress. Well developed, well nourished. HEENT: Pupils are round and equally reacting to light. EOMI. No scleral icterus. No conjunctival pallor. Normocephalic, atraumatic. No pharyngeal erythema. No thyromegaly. CARDIOVASCULAR: S1 and S2 present. No murmurs, rubs, or gallops. PULMONARY: Chest is clear to auscultation, no wheezing or crackles. ABDOMEN: Soft, nontender, nondistended, normoactive bowel sounds. No palpable organomegaly. MUSCULOSKELETAL: No joint swelling or deformity. EXTREMITIES: No cyanosis, clubbing, or pedal edema. NEUROLOGICAL: Gross neurological examination did not reveal any focal deficits. SKIN: No rashes. Assessment and Plan Plan: -Bacteremia with staph aureus: Without any endocarditis -History of prior drug use hepatitis panel and HIV were negative -Leukocytosis: Secondary to sepsis as mentioned above and bacteremia, improved -Tachycardia continue with IV fluids Patient Condition at Discharge: Serious Plan - Discharge Summary Discharge Rx Participant: Yes New Discharge Prescriptions: New Linezolid 600 mg PO BID #42 tablet Discontinued Azithromycin [Zithromax Z-pack] See Taper PO DAILY Discharge Medication List Linezolid 600 mg PO BID #42 tablet 08/24/18 [Rx] Follow up Appointment(s)/Referral(s): Romeo Salcedo MD [REFERRING] - 1 Week Everton Qureshi MD [STAFF PHYSICIAN] - 1 Week None,Stated [Primary Care Provider] - 1-2 days Ambulatory/Diagnostic Orders: Basic Metabolic Panel [LAB.AMB] Location: None Selected Complete Blood Count w/diff [LAB.AMB] Location: None Selected Erythrocyte Sedimentation Rate [LAB.AMB] Location: None Selected Patient Instructions/Handouts: Pneumonia (DC) Discharge Disposition: HOME SELF-CARE
== END 2018-08-26 15:51 | disposition home or self-care (01) | DRG 871 ==
LOC: EC 00:51 → 3NMEDONC 04:28
PROVIDERS: ADMIT Internal Medicine; ATTEND Internal Medicine
DX: A41.01 Sepsis due to Methicillin susceptible Staphylococcus aureus (principal); J18.9 Pneumonia, unspecified organism; F17.210 Nicotine dependence, cigarettes, uncomplicated; F11.90 Opioid use, unspecified, uncomplicated; F32.9 Major depressive disorder, single episode, unspecified
CPT/HCPCS: 36415; 71046; 80053; 80074; 80202; 81003; 83605; 84484; 85025; 85610; 85730; 87040; 87086; 87390; 93005; 93306; 96365; 96366; 96368; 96375; 99285